=== PATIENT | female | born 1995 | race Caucasian/White ===

== ENCOUNTER 2017-09-05 19:33 | Emergency (ER) | payer SELFPAY ==
[2017-09-05 21:03] VITALS: BP 141/78
== END 2017-09-05 21:03 | disposition home or self-care (01) ==
LOC: ED 19:33
DX: N60.12 Diffuse cystic mastopathy of left breast (principal); N60.11 Diffuse cystic mastopathy of right breast

== ENCOUNTER 2020-08-12 09:56 | Emergency (ER) | payer MEDICAID ==
[~2020-08-12] VITALS: Ht 149.9 cm; Wt 59.9 kg
[2020-08-12 10:09] VITALS: Ht 149.9 cm; Wt 59.9 kg
[2020-08-12 11:48] VITALS: BP 108/60
== END 2020-08-12 11:48 | disposition home or self-care (01) ==
LOC: ED 09:56
DX: N75.0 Cyst of Bartholin's gland (principal); Z98.890 Other specified postprocedural states
CPT/HCPCS: J2001

== ENCOUNTER 2020-08-13 12:51 | Emergency (ER) | payer MEDICAID ==
[~2020-08-13] VITALS: Ht 149.9 cm; Wt 59.9 kg
[2020-08-13 13:04] VITALS: BP 118/68; Ht 149.9 cm; Wt 59.9 kg
== END 2020-08-13 15:25 | disposition home or self-care (01) ==
LOC: ED 12:51
DX: N75.0 Cyst of Bartholin's gland (principal); Z98.890 Other specified postprocedural states
CPT/HCPCS: J2001

== ENCOUNTER 2020-08-18 12:24 | Emergency (ER) | payer MEDICAID ==
[~2020-08-18] VITALS: Ht 149.9 cm; Wt 59.9 kg
[2020-08-18 12:34] VITALS: Ht 149.9 cm; Wt 59.9 kg
[2020-08-18 13:00] VITALS: BP 104/68
== END 2020-08-18 13:24 | disposition home or self-care (01) ==
LOC: ED 12:24
DX: N75.1 Abscess of Bartholin's gland (principal)